=== PATIENT | male | born 1950 | race Caucasian/White ===

== ENCOUNTER → 2018-03-03 | Outpatient (CLI) | payer MEDICARE ==
[~2018-03-03] MED LIST: AMLO5TAB2 PO; ASPI-496 PO; ASPI325T80 PO; ATOR-2 PO; CARV25TA12 PO; CITA20TA5 PO; CLOP75TA52 PO; FURO40TA6 PO; ISOS30TA8 PO; LOSA100T6 PO; ZOLP5TAB6 PO; will bring med list
== END | disposition home or self-care (01) ==
LOC: CVU 15:17
PROVIDERS: ATTEND Nurse Practitioner Family
DX: I34.0 Nonrheumatic mitral (valve) insufficiency (principal); I10 Essential (primary) hypertension; E78.5 Hyperlipidemia, unspecified; I25.2 Old myocardial infarction; Z95.0 Presence of cardiac pacemaker
CPT/HCPCS: 93306

== ENCOUNTER 2018-07-25 13:57 | Inpatient (IN) | payer MEDICARE ==
[~2018-07-25] VITALS: Ht 177.8 cm; Wt 92.6 kg
[~2018-07-25 13:57] MED LIST changes: -AMLO5TAB2 PO; +AMLO5TAB7 PO; -CITA20TA5 PO; +CITA20TA6 PO; -LOSA100T6 PO; +LOSA100T7 PO; +MV,M1TAB6 PO; +VIT1CAPS42 PO
[2018-07-25] MEDS ORDERED: METOPROLOL 1 MG/ML, 5ML IVPush ONE (14:30)
[2018-07-25] MEDS ORDERED: SODIUM CHLORIDE FLUSH 10ML SYR IVF ONE (14:30)
[2018-07-25] MEDS ORDERED: METOPROLOL 1 MG/ML, 5ML ONE (14:31)
[2018-07-25 14:45] LABS: BASOPHILS # (AUTO) 0.04 x10^3/uL (0-0.1); BASOPHILS % (AUTO) 1 % (0-1); EOSINOPHILS # (AUTO) 0.14 x10^3/uL (0-0.4); EOSINOPHILS % (AUTO) 2 % (1-7); LYMPHOCYTES % (AUTO) 33 % (22-44); MD NO; MEAN CORPUSCULAR HEMOGLOBIN 30.9 pg (27.5-34.5); MEAN CORPUSCULAR HGB CONC 33.9 g/dL (33.2-36.2); MEAN CORPUSCULAR VOLUME 91.2 fL (81-97); MONOCYTES # (AUTO) 0.86 x10^3/uL (0.2-0.8); MONOCYTES % (AUTO) 12 % (2-9); NEUTROPHILS # (AUTO) 3.66 x10^3/uL (1.8-6.8); NEUTROPHILS % (AUTO) 52 % (42-75); PLATELET COUNT 193 x10^3/uL (130-400); RED BLOOD COUNT 5.18 x10^6/uL (4.38-5.82); RED CELL DISTRIBUTION WIDTH 13.5 % (9.4-14.8)
[2018-07-25 14:53] LABS: ALBUMIN 3.4 g/dL (3.4-5.0); ANION GAP 8 mmol/L (5-15); CHLORIDE 110 mmol/L (98-107); CREATININE 0.95 mg/dL (0.7-1.3)
[2018-07-25 14:55] LABS: TROPONIN I 0.028 ng/mL (0.000-0.045)
[2018-07-25] MEDS ORDERED: HEPARIN 5,000 UNITS/ML, 1ML IV ONE (15:00)
[2018-07-25 15:03] LABS: THYROID STIMULATING HORMONE < 0.005 mIU/L (0.358-3.740)
[2018-07-25] MEDS ORDERED: HEPARIN 25,000 UNITS/500ML PMX 500 ML ONE (15:33)
[2018-07-25] MEDS ORDERED: HEPARIN 5,000 UNITS/ML, 1ML ONE (15:33)
[2018-07-25] MEDS ORDERED: DIGOXIN 0.25 MG/ML, 2ML ONE (15:38)
[2018-07-25] MEDS: HEPARIN 25,000 UNITS/500ML PMX 500 ML IV PRN (15:44)
[2018-07-25 15:49] LABS: INTERNATIONAL NORMALIZED RATIO 1.02 (0.93-1.1); PROTHROMBIN TIME 10.6 Seconds (9.6-11.5)
[2018-07-25] MEDS ORDERED: DILTIAZEM 5 MG/ML, 5ML IVPush ONE ×3 (16:00→17:00)
[2018-07-25] MEDS ORDERED: HYDROcodone/APAP 5/325 TABLET PO PRN (16:00)
[2018-07-25] MEDS ORDERED: NITROGLYCERIN 0.4 MG BOTTLE (25 TABS) SL PRN (16:00)
[2018-07-25] MEDS ORDERED: TEMAZEPAM 15 MG CAPSULE PO PRN (16:00)
[2018-07-25] MEDS ORDERED: DIGOXIN 0.25 MG/ML, 2ML IVPush ONE (16:00)
[2018-07-25] MEDS ORDERED: ACETAMINOPHEN 325 MG TABLET PO PRN (16:00)
[2018-07-25] MEDS ORDERED: hydrALAzine 20 MG/ML, 1ML IVPush PRN (16:00)
[2018-07-25] MEDS ORDERED: MORPHINE SULFATE 4 MG/ML, 1ML IVPush PRN (16:00)
[2018-07-25] MEDS ORDERED: ONDANSETRON 2MG/ML, 2ML IVPush PRN (16:00)
[2018-07-25 16:22] VITALS: BP 134/83
[2018-07-25 17:24] LABS: MICROSCOPIC NOT IND
[2018-07-25 17:25] LABS: CULTURE INDICATED? NO
[2018-07-25] MEDS ORDERED: DILTIAZEM 125 MG in SODIUM CHLORIDE 0.9% 100 ML IV PRN (18:00)
[2018-07-25] MEDS: DILTIAZEM 125 MG in DEXTROSE 5% 100 ML IV PRN (18:24)
[2018-07-25 18:55] VITALS: BP 126/60
[2018-07-25] MEDS: CARVEDILOL 25 MG TABLET PO SCH (21:15)
[2018-07-25 22:29] LABS: TROPONIN I 0.031 ng/mL (0.000-0.045)
[2018-07-25] MEDS: HEPARIN 5,000 UNITS/ML, 1ML IV PRN (22:29)
[2018-07-26 03:17] VITALS: BP 124/71
[2018-07-26] MEDS: ASPIRIN 81 MG TABLET EC PO SCH (05:13)
[2018-07-26 05:20] LABS: BASOPHILS # (AUTO) 0.02 x10^3/uL (0-0.1); BASOPHILS % (AUTO) 0 % (0-1); EOSINOPHILS # (AUTO) 0.17 x10^3/uL (0-0.4); EOSINOPHILS % (AUTO) 3 % (1-7); LYMPHOCYTES # (AUTO) 2.44 x10^3/uL (1-3.4); LYMPHOCYTES % (AUTO) 46 % (22-44); MD NO; MEAN CORPUSCULAR HGB CONC 33.5 g/dL (33.2-36.2); MEAN CORPUSCULAR VOLUME 89.6 fL (81-97); MEAN PLATELET VOLUME 9.4 fL (7.4-10.4); MONOCYTES # (AUTO) 0.75 x10^3/uL (0.2-0.8); MONOCYTES % (AUTO) 14 % (2-9); NEUTROPHILS % (AUTO) 36 % (42-75); PLATELET COUNT 161 x10^3/uL (130-400); RED BLOOD COUNT 4.78 x10^6/uL (4.38-5.82); RED CELL DISTRIBUTION WIDTH 13.6 % (9.4-14.8)
[2018-07-26 05:24] LABS: ALANINE AMINOTRANSFERASE 97 U/L (12-78); ALBUMIN 2.8 g/dL (3.4-5.0); ANION GAP 8 mmol/L (5-15); CALCIUM 8.9 mg/dL (8.5-10.1); CHLORIDE 110 mmol/L (98-107); CREATININE 0.87 mg/dL (0.7-1.3)
[2018-07-26 05:29] LABS: ALKALINE PHOSPHATASE 178 U/L (45-117); BILIRUBIN,TOTAL 0.6 mg/dL (0.2-1.0); TOTAL PROTEIN 5.3 g/dL (6.4-8.2); TROPONIN I 0.035 ng/mL (0.000-0.045)
[2018-07-26] MEDS: HEPARIN 5,000 UNITS/ML, 1ML IV PRN ×2 (06:02→19:26)
[2018-07-26 06:51] VITALS: BP 147/82
[2018-07-26] MEDS: ISOSORBIDE MONONITRATE ER 30 MG TABLET PO SCH (09:40)
[2018-07-26] MEDS: ATORVASTATIN 80 MG TABLET PO SCH (09:40)
[2018-07-26] MEDS: MULTIVITS,STRESS FORMULA 1 TABLET PO SCH (09:40)
[2018-07-26] MEDS: MULTIVITAMINS/MINERALS TABLET PO SCH (09:40)
[2018-07-26] MEDS: AMLODIPINE 5 MG TABLET PO SCH (09:40)
[2018-07-26] MEDS: CARVEDILOL 25 MG TABLET PO SCH ×2 (09:40→19:32)
[2018-07-26 12:10] VITALS: BP 120/74
[2018-07-26] MEDS: HEPARIN 25,000 UNITS/500ML PMX 500 ML IV PRN (16:26)
[2018-07-26] MEDS: DILTIAZEM 125 MG in DEXTROSE 5% 100 ML IV PRN (16:26)
[2018-07-26 17:06] LABS: FREE T4 (FREE THYROXINE) 4.83 ng/dL (0.76-1.46)
[2018-07-26] MEDS ORDERED: DILTIAZEM 125 MG in DEXTROSE 5% 100 ML IV PRN (18:30)
[2018-07-26 21:40] VITALS: BP 142/73
[2018-07-27 01:39] VITALS: BP 136/75
[2018-07-27] MEDS: ASPIRIN 81 MG TABLET EC PO SCH (04:59)
[2018-07-27 07:52] VITALS: BP 121/73
[2018-07-27] MEDS: CARVEDILOL 25 MG TABLET PO SCH (09:00)
[2018-07-27] MEDS: SOTALOL 80MG TABLET PO SCH ×2 (11:03→17:59)
[2018-07-27] MEDS: MULTIVITS,STRESS FORMULA 1 TABLET PO SCH (11:03)
[2018-07-27] MEDS: AMLODIPINE 5 MG TABLET PO SCH (11:04)
[2018-07-27] MEDS: ISOSORBIDE MONONITRATE ER 30 MG TABLET PO SCH (11:04)
[2018-07-27] MEDS: ATORVASTATIN 80 MG TABLET PO SCH (11:04)
[2018-07-27] MEDS: METHIMAZOLE 5 MG TAB PO SCH (11:04)
[2018-07-27] MEDS: MULTIVITAMINS/MINERALS TABLET PO SCH (11:04)
[2018-07-27] MEDS: APIXABAN 5 MG TABLET PO SCH ×2 (11:05→22:21)
[2018-07-27] MEDS: PROPRANOLOL 10 MG TABLET PO SCH ×3 (11:05→22:21)
[2018-07-27 13:38] VITALS: BP 125/75
[2018-07-27 20:43] VITALS: BP 147/73
[2018-07-27 22:19] VITALS: BP 161/70
[2018-07-28 01:44] VITALS: BP 152/74
[2018-07-28 04:54] LABS: ALBUMIN 2.9 g/dL (3.4-5.0); ANION GAP 8 mmol/L (5-15); CALCIUM 9.4 mg/dL (8.5-10.1); CHLORIDE 113 mmol/L (98-107)
[2018-07-28 04:59] LABS: ALANINE AMINOTRANSFERASE 86 U/L (12-78); ALKALINE PHOSPHATASE 186 U/L (45-117); BILIRUBIN,TOTAL 0.4 mg/dL (0.2-1.0); TOTAL PROTEIN 5.6 g/dL (6.4-8.2)
[2018-07-28] MEDS: PROPRANOLOL 10 MG TABLET PO SCH (06:00)
[2018-07-28] MEDS: ASPIRIN 81 MG TABLET EC PO SCH (06:21)
[2018-07-28 07:42] VITALS: BP 164/78
[2018-07-28] MEDS ORDERED: LISINOPRIL 10 MG TABLET PO SCH (09:00)
[2018-07-28] MEDS: METHIMAZOLE 5 MG TAB PO SCH ×2 (09:00→09:15)
[2018-07-28] MEDS: MULTIVITS,STRESS FORMULA 1 TABLET PO SCH (09:06)
[2018-07-28] MEDS: ATORVASTATIN 80 MG TABLET PO SCH (09:07)
[2018-07-28] MEDS: AMLODIPINE 5 MG TABLET PO SCH (09:08)
[2018-07-28] MEDS: SOTALOL 80MG TABLET PO SCH ×2 (09:08→20:47)
[2018-07-28] MEDS: APIXABAN 5 MG TABLET PO SCH ×2 (09:09→20:47)
[2018-07-28] MEDS: ISOSORBIDE MONONITRATE ER 30 MG TABLET PO SCH (09:09)
[2018-07-28] MEDS: MULTIVITAMINS/MINERALS TABLET PO SCH (09:10)
[2018-07-28 14:01] VITALS: BP 136/73
[2018-07-28 19:42] VITALS: BP 132/70
[2018-07-29 05:00] VITALS: BP 161/88
[2018-07-29] MEDS: SOTALOL 80MG TABLET PO SCH (06:25)
[2018-07-29] MEDS: ASPIRIN 81 MG TABLET EC PO SCH (06:25)
[2018-07-29] MEDS: METHIMAZOLE 5 MG TAB PO SCH (07:54)
[2018-07-29] MEDS: MULTIVITS,STRESS FORMULA 1 TABLET PO SCH (07:55)
[2018-07-29] MEDS: MULTIVITAMINS/MINERALS TABLET PO SCH (07:55)
[2018-07-29] MEDS: ATORVASTATIN 80 MG TABLET PO SCH (07:55)
[2018-07-29] MEDS: APIXABAN 5 MG TABLET PO SCH (07:56)
[2018-07-29] MEDS: AMLODIPINE 5 MG TABLET PO SCH (07:56)
[2018-07-29 08:12] VITALS: BP 125/73
[2018-07-29] MEDS ORDERED: REGADENOSON 0.4 MG/5 ML SYRINGE ONE (08:43)
[2018-07-29] MEDS ORDERED: LISINOPRIL 20 MG TABLET PO SCH (09:00)
[2018-07-29 12:38] VITALS: BP 134/69
[2018-07-29] MEDS ORDERED: METH5TAB6 PO (16:03)
[2018-07-29] MEDS ORDERED: SOTA80TA18 PO (16:03)
[2018-07-29] MEDS ORDERED: APIX5TAB PO (16:03)
[2018-07-29] MEDS ORDERED: LISI-170 PO (16:03)
[2018-07-29] MEDS ORDERED: ASPI-621 PO (16:03)
[2018-07-30] MEDS ORDERED: ISOSORBIDE MONONITRATE ER 30 MG TABLET PO SCH (09:00)
== END 2018-07-29 18:01 | disposition home or self-care (01) | DRG 308 ==
LOC: ED 14:52 → EDIP 14:53 → ED 14:54 → 5SO 16:13
PROVIDERS: ADMIT Internal Medicine; ATTEND Internal Medicine
PROC: 4B02XTZ Measurement of Cardiac Defibrillator, External Approach (ICD-10-PCS; principal; 2018-07-25)
DX: I48.91 Unspecified atrial fibrillation (principal); I50.33 Acute on chronic diastolic (congestive) heart failure; I11.0 Hypertensive heart disease with heart failure; E03.9 Hypothyroidism, unspecified; E05.90 Thyrotoxicosis, unspecified without thyrotoxic crisis or storm; E78.5 Hyperlipidemia, unspecified; I25.119 Atherosclerotic heart disease of native coronary artery with unspecified angina pectoris; I25.5 Ischemic cardiomyopathy; I34.0 Nonrheumatic mitral (valve) insufficiency; I35.8 Other nonrheumatic aortic valve disorders; K70.10 Alcoholic hepatitis without ascites; N20.0 Calculus of kidney; Z79.01 Long term (current) use of anticoagulants; Z79.899 Other long term (current) drug therapy; Z80.3 Family history of malignant neoplasm of breast; Z85.528 Personal history of other malignant neoplasm of kidney; Z82.49 Family history of ischemic heart disease and other diseases of the circulatory system; Z88.8 Allergy status to other drugs, medicaments and biological substances; Z91.018 Allergy to other foods; Z87.891 Personal history of nicotine dependence; Z90.49 Acquired absence of other specified parts of digestive tract; Z90.5 Acquired absence of kidney; Z95.5 Presence of coronary angioplasty implant and graft; Z95.810 Presence of automatic (implantable) cardiac defibrillator
CPT/HCPCS: 36415; 71045; 78452; 80048; 80053; 80074; 81003; 82040; 83735; 83880; 84100; 84439; 84443; 84481; 84484; 85025; 85520; 85610; 85730; 93005; 93017; 93306; 96374; 99291; G0378; J1644; J2785; A9502; C9898; J1160

== ENCOUNTER → 2020-06-28 | Outpatient (CLI) | payer MEDICARE ==
[~2020-06-28] MED LIST changes: +AMLO-150 PO; -AMLO5TAB7 PO; +APIX5TAB PO; +ASPI81TA45 PO; +LISI-170 PO; +LOSA100T14 PO; -LOSA100T7 PO; +METH5TAB6 PO; +SOTA80TA18 PO
== END | disposition home or self-care (01) ==
LOC: CFH 12:43
PROVIDERS: ATTEND Internal Medicine Gastroenterology
DX: K40.90 Unilateral inguinal hernia, without obstruction or gangrene, not specified as recurrent (principal); K57.30 Diverticulosis of large intestine without perforation or abscess without bleeding; K41.90 Unilateral femoral hernia, without obstruction or gangrene, not specified as recurrent; N20.0 Calculus of kidney; R74.8 Abnormal levels of other serum enzymes; R19.4 Change in bowel habit; J98.11 Atelectasis; Q79.1 Other congenital malformations of diaphragm
CPT/HCPCS: 74176